=== PATIENT | female | born 1990 | race African-American/Black ===

== ENCOUNTER 2016-11-13 09:03 | Emergency (ER) ==
[2016-11-13 09:19] VITALS: BP 129/85
--- NOTE | 2016-11-13 10:27 | PROVIDER DOCUMENTATION ---
[facility] General - General Source: patient - History of Present Illness-[facility] Location: reports: throat Quality of Pain: reports: burning Severity: reports: mild Onset/Duration: reports: 2 days ago Timing: reports: still present Prearrival Treatment: Initiated no prearrival treatment Associated Symptoms: reports: denies symptoms Locality of Occurance: Home Similar Symptoms Previously?: Yes Recently seen or treated by another doctor?: No - Throat/Dental Throat/Dental Problem Symptoms: reports: sore throat Throat/Dental Problem Context: denies: dental decay, foreign body, fractured tooth Recently seen a dentist or have an appointment?: No <Stephania Negro - Last Filed: 11/13/16 10:47> <Varun Barnett - Last Filed: 11/13/16 10:51> - General Chief Complaint: Sore Throat Stated Complaint: SORE THROAT Time Seen by Provider: 11/13/16 10:20 Allergies/Adverse Reactions: Patient Allergies Allergy/AdvReac Type Severity Reaction Status Date / Time No Known Allergies Allergy Verified 11/13/16 09:19 Home Medications: Home Medication List Medication Instructions Recorded Confirmed Last Taken Type Guaifenesin/Codeine [Robitussin-AC] 10 ml PO Q4H PRN PRN #8 oz 11/13/16 Unknown Rx - History of Present Illness-[facility] General Nature of Presenting Problem: Pt is 26 y/o F presents to the ED with sore throat. Pt states sore throat has been present for 2 days. Pt denies sick contact. Pt denies F (Stephania Negro) Review of Systems - Adult - REVIEW OF SYSTEMS - ADULT Constitutional: reports: no symptoms reported Eyes: reports: no symptoms reported Ears, Nose, Mouth & Throat: reports: throat pain. denies: ear pain, nose pain Cardiovascular: reports: no symptoms reported Respiratory: reports: no symptoms reported Gastrointestinal: reports: no symptoms reported Genitourinary: reports: no symptoms reported Musculoskeletal: reports: no symptoms reported Integumentary: reports: no symptoms reported Neurological: reports: no symptoms reported Psychiatric: reports: no symptoms reported Endocrine: reports: no symptoms reported Hematologic/Lymphatic: reports: no symptoms reported Allergic/Immunologic: reports: no symptoms reported All Other Systems: Reviewed and Negative <Stephania Negro - Last Filed: 11/13/16 10:47> Past History - Adult - PAST MEDICAL HISTORY-ADULT Review of Records: reports: Nursing Assessment Review, Medications Reviewed, Social history reviewed & non-contributory. Major Childhood Illnesses: reports: denies history Cardiovascular: reports: denies history Respiratory: reports: denies history Gastrointestinal: reports: denies history Obstetrical/Gynecological: reports: denies history Genitourinary: reports: denies history Musculoskeletal: reports: denies history Neurological: reports: denies history Psychiatric: reports: denies history Endocrine/Immune: reports: denies history Other Conditions: reports: denies history - PRIOR SURGERIES/PROCEDURES Surgical/Procedure History: reports: none - PRIOR HOSPITALIZATIONS Prior Hospitalizations: reports: none - IMMUNIZATION STATUS Childhood Immunizations: See Nurse Assessment Flu Vaccine: See Nurse Assessment - FAMILY HISTORY Family History: reviewed, not pertinent - SOCIAL HISTORY Smoking: denies Substance Use: denies Living Situation: family <Stephania Negro - Last Filed: 11/13/16 10:47> Physical Exam- EENT - Physical Exam EENT Initial Vital Signs Reviewed: Yes General Appearance: appears well, alert, no apparent distress Eye Exam: bilateral eye: normal inspection, PERRL, EOMI Ear Exam: bilateral ear: auricle normal, canal normal, TM normal Nasal Exam: normal inspection Throat Exam: other (pharynx redness) Neck: non-tender, full range of motion, supple, normal inspection Respiratory: chest non-tender, lungs clear, normal breath sounds, no pleuratic chest pain, no respiratory distress, no accessory muscle use Cardiovascular: normal peripheral pulses, regular rate, rhythm, no edema, no gallop, no JVD, no murmur Abdominal Exam: normal bowel sounds, non tender, soft, no organomegaly Lymphatic: no adenopathy Back Exam: normal inspection, no CVA tenderness, no vertebral tenderness Extremity: normal range of motion, non-tender, normal gait, normal inspection, no pedal edema, no calf tenderness Integumentary: normal color, normal turgor, warm/dry Neurologic: grossly normal Psych/Mental Status: normal mood/affect, oriented x 3 <Stephania Negro - Last Filed: 11/13/16 10:47> Progress <Stephania Negro - Last Filed: 11/13/16 10:47> <Varun Barnett - Last Filed: 11/13/16 10:51> - PLAN OF CARE/RESULTS Progress/Plan/Lab Results: Orders Category Date Time Status CBC WITH DIFF [HEME] Stat Lab 11/13/16 10:[address] Stat Lab 11/13/16 10:25 Ordered Vital Signs - 24 hr 11/13/16 09:16 Temperature 98.5 F Pulse Rate 72 Respiratory 18 Rate Blood Pressure 129/85 O2 Sat by Pulse 99 Oximetry Laboratory Tests 11/13/16 11/13/16 10:25 10:39 WBC 10.21 RBC 4.31 Hgb 11.2 L Hct 34.6 L MCV 80.3 L MCH 26.0 L MCHC 32.4 L RDW Std Deviation 12.9 Plt Count 277 MPV 10.6 H Immature Gran % (Auto) 0.2 Neut % (Auto) 63.9 Lymph % (Auto) 23.4 [place] % (Auto) 10.4 H Eos % (Auto) 1.8 Baso % (Auto) 0.3 Immature Gran # (Auto) 0.02 Neut # (Auto) 6.53 H Lymph # (Auto) 2.39 [place] # (Auto) 1.06 H Eos # (Auto) 0.18 Baso # (Auto) 0.03 Group A Strep Rapid NEGATIVE (Stephania Negro) Departure <Stephania Negro - Last Filed: 11/13/16 10:47> - Departure Time of Disposition Order: 10:48 Certified Medical Emergency: Emergent <Varun Barnett - Last Filed: 11/13/16 10:51> - Departure DIAGNOSIS: URI (upper respiratory infection) Qualifiers: URI type: unspecified viral URI Qualified Code(s): J06.9 - Acute upper respiratory infection, unspecified; B97.89 - Other viral agents as the cause of diseases classified elsewhere Disposition: HOME 01 Condition: Stable Additional Instructions: ED Follow Up Instructions: You have been treated by a care provider in the Emergency Department. These instructions are being provided to you so you can have an understanding of how to care for yourself upon discharge. Upon discharge from the Emergency Department, you are responsible for making arrangements for follow-up care by a physician of your choice. Take all prescribed medications as directed. Return to the Emergency Department immediately for any new or worsening symptoms. You may call the Physician Referral phone number at [phone] to obtain a list of Physicians who are taking new patients. Prescriptions: Guaifenesin/Codeine [Robitussin-AC] 10 ml PO Q4H PRN PRN #8 oz PRN Reason: Cough Attestation - Scribe Verification/Attestation Scribe:: Stephania Negro Acting as Scribe for:: Varun Barnett Scribe documention review:: This chart was documented by a scribe and accurately reflects the service the provider performed and the decisions made by the provider. <Stephania Negro - Last Filed: 11/13/16 10:47> Physician Attestation
[2016-11-13 10:44] LABS: MANUAL DIFF NEEDED? NO
[2016-11-13 10:45] LABS: BASO% 0.3 % (0.0-0.8); EOS# 0.18 X1000 (0.0-0.7); EOS% 1.8 % (0.0-10.0); HEMATOCRIT 34.6 % (37.0-47.0); HEMOGLOBIN 11.2 g/dL (12.0-16.0); IMM GRAN# 0.02 X1000 (0.0-0.04); IMM GRAN% 0.2 % (0.0-0.5); LYMPH# 2.39 X1000 (1.2-3.4); LYMPH% 23.4 % (20.5-51.1); MCHC 32.4 g/dL (33-37); MCV 80.3 FL (81-99); MONO# 1.06 X1000 (0.11-0.59); MONO% 10.4 % (1.7-9.3); MPV 10.6 FL (7.4-10.4); NEUT% 63.9 % (42.2-75.2); PLT 277 X1000 (130-400); RBC 4.31 XMIL (4.2-5.4)
== END 2016-11-13 11:29 | disposition home or self-care (01) ==
LOC: P.ED 09:03
DX: J06.9 Acute upper respiratory infection, unspecified (principal); B97.89 Other viral agents as the cause of diseases classified elsewhere; J02.9 Acute pharyngitis, unspecified
CPT/HCPCS: 36415; 85025; 87081; 87430; 99283